=== PATIENT | female | born 1995 | race Two or more races ===

== ENCOUNTER 2018-07-10 19:42 | Emergency (ER) | payer SELFPAY ==
[~2018-07-10] VITALS: Ht 170.2 cm; Wt 74.8 kg
[2018-07-10 20:06] VITALS: BP 121/55
--- NOTE | 2018-07-10 20:14 | PHYS DOC ---
Adult General Chief Complaint Chief Complaint: VAGINAL BLEEDING [facility] HPI Patient is a 22-year-old female who presents with complaint of vaginal bleeding and pelvic cramping that is intermittent. Patient reportedly has had what she believes to be a miscarriage but has not passed any products of conception. She was seen at on Sunday and was told that the products of conception should pass at some point but she is having continued bleeding and pain without passing products of conception and they're worried that maybe she has got something wrong with her. Currently she rates cramping as mild. She denies any nausea or vomiting.[] Review of Systems Review of Systems Constitutional: Denies fever or chills [] Respiratory: Denies cough or shortness of breath [] Cardiovascular: No additional information not addressed in HPI [] GI: Admits to lower abdominal pain/cramping without vomiting or diarrhea [] : Positive vaginal bleeding. Denies dysuria or hematuria [] Musculoskeletal: Denies back pain or joint pain [] All other systems were reviewed and found to be within normal limits, except as documented in this note. Allergies Allergies Allergies Coded Allergies Type Severity Reaction Last Updated Verified No Known Drug Allergies 07/10/18 No Physical Exam Physical Exam Constitutional: Well developed, well nourished, no acute distress, non-toxic appearance. [] HENT: Normocephalic, atraumatic, bilateral external ears normal, oropharynx moist, no oral exudates, nose normal. [] Eyes: PERRLA, EOMI, conjunctiva normal, no discharge. [] Neck: Normal range of motion, no tenderness, supple, no stridor. [] Cardiovascular:Heart rate regular rhythm, no murmur [] Lungs & Thorax: Bilateral breath sounds clear to auscultation [] Abdomen: Bowel sounds normal, soft, no tendernesss. [] Skin: Warm, dry, no erythema, no rash. [] Back: No tenderness, no CVA tenderness. [] Extremities: No tenderness, no cyanosis, no clubbing, ROM intact, no edema. [] Neurologic: Alert and oriented X 3, normal motor function, normal sensory function, no focal deficits noted. [] Psychologic: Affect normal, judgement normal, mood normal. [] Current Patient Data Vital Signs Vital Signs Date Time Temp Pulse Resp B/P (MAP) Pulse Ox O2 Delivery O2 Flow Rate FiO2 07/10/18 20:06 98.2 84 16 121/55 (77) 99 98.2 Lab Values Laboratory Tests Test 07/10/18 19:59 07/10/18 20:19 POC Urine HCG, Qualitative Hcg positive (Negative) White Blood Count 7.7 x10^3/uL (4.0-11.0) Red Blood Count 4.16 x10^6/uL (3.50-5.40) Hemoglobin 9.2 g/dL (12.0-15.5) L Hematocrit 29.0 % (36.0-47.0) L Mean Corpuscular Volume 70 fL (79-100) L Mean Corpuscular Hemoglobin 22 pg (25-35) L Mean Corpuscular Hemoglobin Concent 32 g/dL (31-37) Red Cell Distribution Width 22.8 % (11.5-14.5) H Platelet Count 255 x10^3/uL (140-400) Neutrophils (%) (Auto) 65 % (31-73) Lymphocytes (%) (Auto) 27 % (24-48) Monocytes (%) (Auto) 6 % (0-9) Eosinophils (%) (Auto) 1 % (0-3) Basophils (%) (Auto) 1 % (0-3) Neutrophils # (Auto) 4.9 x10^3uL (1.8-7.7) Lymphocytes # (Auto) 2.1 x10^3/uL (1.0-4.8) Monocytes # (Auto) 0.5 x10^3/uL (0.0-1.1) Eosinophils # (Auto) 0.1 x10^3/uL (0.0-0.7) Basophils # (Auto) 0.1 x10^3/uL (0.0-0.2) Platelet Estimate Adequate (ADEQUATE) Hypochromasia Mod Anisocytosis Mod Microcytosis Marked Sodium Level 139 mmol/L (136-145) Potassium Level 3.8 mmol/L (3.5-5.1) Chloride Level 106 mmol/L (98-107) Carbon Dioxide Level 23 mmol/L (21-32) Anion Gap 10 (6-14) Blood Urea Nitrogen 7 mg/dL (7-20) Creatinine 0.5 mg/dL (0.6-1.0) L Estimated GFR (Cockcroft-Gault) 151.6 BUN/Creatinine Ratio 14 (6-20) Glucose Level 100 mg/dL (70-99) H Calcium Level 8.8 mg/dL (8.5-10.1) Total Bilirubin 0.2 mg/dL (0.2-1.0) Aspartate Amino Transferase (AST) 11 U/L (15-37) L Alanine Aminotransferase (ALT) 14 U/L (14-59) Alkaline Phosphatase 54 U/L (46-116) Total Protein 6.8 g/dL (6.4-8.2) Albumin 3.4 g/dL (3.4-5.0) Albumin/Globulin Ratio 1.0 (1.0-1.7) Laboratory Tests 07/10/18 20:19 Laboratory Tests 07/10/18 20:19 EKG EKG [] Radiology/Procedures Radiology/Procedures [] Impressions: REASON: w/ vag bleeding and cramping; no heart tones seen Sat at [facility] PROCEDURE: OB <14 WKS W/TV Obstetrical ultrasound less than 14 weeks transabdominal and transvaginal imaging. HISTORY: Vaginal bleeding and cramping, no heartbeat noted a prior study Sunday Transabdominal ultrasound was performed. Uterus measures 13.9 x 6.9 x 10 cm. There is a intrauterine gestation. There is no free fluid in the pelvis. Cervix was 4 cm in length. Transvaginal imaging was performed. There are nabothian cysts at the cervix. There is an intrauterine gestation. Right ovary was normal measuring 3.3 x 1.8 x 2.2 cm. There is flow in the right ovary with color imaging and Doppler. Left ovary was normal primary measuring 3.5 x 1.2 x 2 cm. There is flow in the left ovary with color imaging and Doppler. There is a gestational sac in the uterus. pole was identified with a crown-rump length of 1.35 cm corresponding to 7 weeks 4 days gestational age. A heart beat was not identified. IMPRESSION: 1. Intrauterine gestation, heartbeat was not identified. Electronically signed by: Clinton Deluna MD (07/11/2018 12:07 AM) [facility] Course & Med Decision Making Course & Med Decision Making Pertinent Labs and Imaging studies reviewed. (See chart for details) [] Dragon Disclaimer Dragon Disclaimer This electronic medical record was generated, in whole or in part, using a voice recognition dictation system. Departure Departure Impression: Primary Impression: Incomplete without complications Disposition: HOME, SELF-CARE Condition: STABLE Referrals: SKYE MOON MD Patient Instructions: Incomplete Miscarriage MICHAEL GONZALEZ Jr. DO July 10, 2018 20:14
[2018-07-10 20:27] LABS: BASO # 0.1 x10^3/uL (0.0-0.2); BASO % 1 % (0-3); EOS # 0.1 x10^3/uL (0.0-0.7); EOS % 1 % (0-3); HEMOGLOBIN 9.2 g/dL (12.0-15.5); LYMPH # 2.1 x10^3/uL (1.0-4.8); LYMPH % 27 % (24-48); MEAN CORPUSCULAR HEMOGLOBIN 22 pg (25-35); MEAN CORPUSCULAR HGB CONC 32 g/dL (31-37); MEAN CORPUSCULAR VOLUME 70 fL (79-100); MONO # 0.5 x10^3/uL (0.0-1.1); MONO % 6 % (0-9); NEUT # 4.9 x10^3uL (1.8-7.7); NEUT % 65 % (31-73); PLATELET COUNT 255 x10^3/uL (140-400); RED BLOOD COUNT 4.16 x10^6/uL (3.50-5.40); RED CELL DISTRIBUTION WIDTH 22.8 % (11.5-14.5); WHITE BLOOD COUNT 7.7 x10^3/uL (4.0-11.0)
[2018-07-10 20:38] LABS: CALCIUM 8.8 mg/dL (8.5-10.1); CREATININE 0.5 mg/dL (0.6-1.0); GFR 151.6; POTASSIUM 3.8 mmol/L (3.5-5.1)
[2018-07-10 20:45] LABS: ALBUMIN 3.4 g/dL (3.4-5.0); TOTAL BILIRUBIN 0.2 mg/dL (0.2-1.0); TOTAL PROTEIN 6.8 g/dL (6.4-8.2)
[2018-07-10 20:47] LABS: PLT ESTIMATE ADEQUATE (ADEQUATE)
[2018-07-10 20:48] LABS: ANISOCYTOSIS MOD; HYPOCHROMIA MOD
[2018-07-10 20:49] LABS: MICROCYTOSIS MARKED
--- NOTE | 2018-07-11 00:10 | RAD ---
Obstetrical ultrasound less than 14 weeks transabdominal and transvaginal imaging. HISTORY: Vaginal bleeding and cramping, no heartbeat noted a prior study Sunday Transabdominal ultrasound was performed. Uterus measures 13.9 x 6.9 x 10 cm. There is a intrauterine gestation. There is no free fluid in the pelvis. Cervix was 4 cm in length. Transvaginal imaging was performed. There are nabothian cysts at the cervix. There is an intrauterine gestation. Right ovary was normal measuring 3.3 x 1.8 x 2.2 cm. There is flow in the right ovary with color imaging and Doppler. Left ovary was normal primary measuring 3.5 x 1.2 x 2 cm. There is flow in the left ovary with color imaging and Doppler. There is a gestational sac in the uterus. pole was identified with a crown-rump length of 1.35 cm corresponding to 7 weeks 4 days gestational age. A heart beat was not identified. IMPRESSION: 1. Intrauterine gestation, heartbeat was not identified. Electronically signed by: Clinton Deluna MD (07/11/2018 12:07 AM) [id number]
== END 2018-07-11 00:20 | disposition home or self-care (01) ==
LOC: ER 19:42
DX: O03.4 Incomplete spontaneous abortion without complication (principal); Z3A.01 Less than 8 weeks gestation of pregnancy
CPT/HCPCS: 36415; 76801; 76817; 80053; 81025; 85025; 86900; 86901; 99285-25